=== PATIENT | male | born 1980 | race Two or more races ===

== ENCOUNTER 2024-01-18 13:53 | Emergency (ER) | payer OTHER ==
[~2024-01-18] VITALS: Ht 182.9 cm; Wt 98.4 kg
[2024-01-18 14:05] VITALS: O2SAT 98
[2024-01-18] MEDS ORDERED: DIPH28.34 TP (14:51)
== END 2024-01-18 14:58 | disposition home or self-care (01) ==
LOC: ER 13:53
DX: S51.832A Puncture wound without foreign body of left forearm, initial encounter (principal); Z88.1 Allergy status to other antibiotic agents; W57.XXXA Bitten or stung by nonvenomous insect and other nonvenomous arthropods, initial encounter; Y93.89 Activity, other specified; Y92.89 Other specified places as the place of occurrence of the external cause; Y99.8 Other external cause status
CPT/HCPCS: A4606; A4663